=== PATIENT | male | born 2000 | race Caucasian/White ===

== ENCOUNTER 2021-12-21 07:24 | Emergency (ER) | payer OTHER ==
[2021-12-21] MEDS ORDERED: Ketorolac Tromethamine 30 MG/ML VIAL ONE (08:21)
[2021-12-21] MEDS ORDERED: Ondansetron PF 4 MG/2 ML Vial ONE (08:21)
[2021-12-21] MEDS ORDERED: methylPREDNISolone Sod Succ 40 MG VIAL ONE (08:21)
[2021-12-21] MEDS ORDERED: Pantoprazole 40 MG VIAL ONE (08:22)
[2021-12-21 08:35] LABS: #Basophils 0.1 10x3/uL (0.0-0.2); #Neutrophils 11.5 10x3/uL (1.5-8.4); %Basophils 0.4 % (0.0-2.0); %Eosinophils 0.3 % (0.0-6.0); %Lymphocytes 7.1 % (18.0-47.0); %Monocytes 7.2 % (0.0-10.0); %Neutrophils 84.5 % (40.0-75.0); Hemoglobin 14.9 g/dL (13.5-17.5); Mean Corpuscular HGB CONC 34.7 g/dL (32.0-36.0); Mean Corpuscular Hemoglobin 29.9 pg (27.0-33.0); Mean Platelet Volume 9.6 fl (7.4-10.4); Platelet Count 215 10x3/uL (150-450); RBC Distribution Width 12.4 % (11.5-14.5); Red Blood Cell (RBC) Count 4.99 10x6/uL (4.32-5.72); White Blood Cell (WBC) Count 13.6 10x3/uL (3.5-10.5)
[2021-12-21 08:40] LABS: SARS-CoV-2 NAA Rapid Test Not Detected (NotDetected)
[2021-12-21 08:56] LABS: ALT (SGPT) 27 U/L (8-55); AST (SGOT) 41 U/L (5-34); Albumin 4.4 g/dL (3.5-5.0); Alkaline Phosphatase 60 U/L (50-130); Anion Gap 15 mmol/L (10-20); BUN (Urea Nitrogen) 13 mg/dL (8.9-20.6); Calc. Creatinine Clearance 0 mL/min (70-130); Calcium 9.3 mg/dL (7.8-10.44); Carbon Dioxide 21 mmol/L (22-29); Chloride 102 mmol/L (98-107); Estimated GFR 71; Globulin 2.8 g/dL (2.4-3.5); Glucose 118 mg/dL (70-105); Potassium 3.9 mmol/L (3.5-5.1); Protein, Total 7.2 g/dL (6.0-8.3); Sodium 134 mmol/L (136-145)
[2021-12-21] MEDS ORDERED: Azithromycin 500 MG VIAL ONE (09:46)
== END 2021-12-21 13:02 | disposition home or self-care (01) ==
LOC: CSHERS 07:24
DX: J18.9 Pneumonia, unspecified organism (principal); B34.9 Viral infection, unspecified; R04.2 Hemoptysis; R11.2 Nausea with vomiting, unspecified; Z20.822 Contact with and (suspected) exposure to COVID-19
CPT/HCPCS: 71045; 80053; 85025; 96361; 96365; 96375; C9113; J0456; J1885; J2405; J2920